=== PATIENT | male | born 1935 | race Caucasian/White ===

== ENCOUNTER 2017-04-04 11:57 | Emergency (ER) | payer OTHER ==
[~2017-04-04 11:57] MED LIST: HYDR25TA PO; IBUP-2354 PO; MELA5CAP PO; MULT-1299 PO; VIT1CAPS47 PO
[2017-04-04 13:03] LABS: BASOPHILS % (AUTO) 0.5 % (0.0-5.0); EOSINOPHILS % (AUTO) 0.7 % (0.0-8.0); HEMATOCRIT 42.5 % (42-54); LYMPHOCYTES % (AUTO) 10.1 % (21.0-51.0); MEAN CORPUSCULAR VOLUME 91.1 fL (79-99); MONOCYTES % (AUTO) 9.4 % (3.0-13.0); NEUTROPHILS % (AUTO) 79.3 % (40.0-77.0); PLATELET COUNT (AUTO) 221 K/uL (130-400); RED BLOOD CELL COUNT(AUTO) 4.67 MIL/uL (4.50-6.20); RED CELL DISTRIBUTION WIDTH 14.2 % (11.0-15.5); WHITE BLOOD COUNT (AUTO) 7.5 K/uL (4.8-10.8)
[2017-04-04 13:08] LABS: CARBON DIOXIDE 28 mmol/L (21-32); CHLORIDE 94 mmol/L (101-111); CREATININE 0.8 mg/dL (0.5-1.5); GLOMERULAR FILTR. RATE CALC 99 mL/min (>60); GLUCOSE,RANDOM 90 mg/dL (70-105); POTASSIUM 3.9 mmol/L (3.5-5.1); SODIUM SERUM 133 mmol/L (136-145); UREA NITROGEN, BLOOD 15 mg/dL (7-18)
[2017-04-04 13:09] LABS: INR 1.03 (0.85-1.15); PARTIAL THROMBOPLASTIN TIME 25.3 SEC (26.3-35.5); PROTHROMBIN TIME 10.8 SEC (9.6-11.6)
[2017-04-04 13:21] LABS: ALANINE AMINOTRANSFERASE 26 U/L (12-78); ALBUMIN 4.2 g/dL (3.5-5.0); ALCOHOL, BLOOD < 3 mg/dL (0-10); AMMONIA 19 umol/L (11-32); ASPARTATE AMINOTRANSFERASE 34 U/L (10-37); BILIRUBIN,TOTAL 0.9 mg/dL (0.2-1.0); CREATINE KINASE MB 0.9 ng/mL (0.5-3.6); CREATINE KINASE, TOTAL 221 U/L (21-232); TOTAL PROTEIN, SERUM 7.7 g/dL (6.0-8.3)
[2017-04-04 13:24] LABS: ACETAMINOPHEN < 1 mcg/mL (10-29); SALICYLATE < 2.8 mg/dL (2.8-20.0)
[2017-04-04 13:35] LABS: APPEARANCE,URINE Clear (CLEAR); BILIRUBIN,URINE Negative (NEGATIVE); COLOR,URINE Yellow (YELLOW); GLUCOSE, URINE (UA) Negative (NEGATIVE); KETONES,URINE Negative (NEGATIVE); LEUKOCYTE ESTERASE ,URINE Negative (NEGATIVE); NITRATE,URINE Negative (NEGATIVE); OCCULT BLOOD,URINE Negative (NEGATIVE); PROTEIN,URINE Negative (NEGATIVE)
[2017-04-04 13:41] LABS: AMPHET/METH SCREEN,URINE NEGATIVE (NEGATIVE); BARBITURATE SCREEN, URINE NEGATIVE (NEGATIVE); BENZODIAZEPINES SCREEN,URINE NEGATIVE (NEGATIVE); CANNABINOID SCREEN,URINE NEGATIVE (NEGATIVE); COCAINE SCREEN,URINE NEGATIVE (NEGATIVE); OPIATE SCREEN,URINE NEGATIVE (NEGATIVE); PHENCYCLIDINE SCREEN,URINE NEGATIVE (NEGATIVE)
== END 2017-04-04 15:20 | disposition home or self-care (01) ==
LOC: EDH 11:57
DX: R41.82 Altered mental status, unspecified (principal); E32.9 Disease of thymus, unspecified; M19.90 Unspecified osteoarthritis, unspecified site; I10 Essential (primary) hypertension; R79.1 Abnormal coagulation profile; Z98.890 Other specified postprocedural states
CPT/HCPCS: 36415; 70450; 80053; 80305; 81003; 82140; 82550; 82553; 85025; 85610; 85730; 93005; 99285; G0480 ×2; G0481

== ENCOUNTER 2020-04-14 12:34 | Inpatient (IN) | payer OTHER ==
[~2020-04-14] VITALS: Ht 170.2 cm; Wt 61.8 kg
[~2020-04-14 12:34] MED LIST changes: -IBUP-2354 PO; +IBUP-2733 PO
[2020-04-14 13:08] LABS: BASOPHILS % (AUTO) 0.5 % (0.0-5.0); EOSINOPHILS % (AUTO) 3.9 % (0.0-8.0); HEMATOCRIT 39.3 % (42-54); LYMPHOCYTES % (AUTO) 16.1 % (21.0-51.0); MEAN CORPUSCULAR HEMOGLOBIN 31.8 pg (27.0-33.0); MEAN CORPUSCULAR HGB CONC 34.4 g/dL (32.0-36.0); MEAN CORPUSCULAR VOLUME 92.7 fL (79-99); MONOCYTES % (AUTO) 8.7 % (3.0-13.0); NEUTROPHILS % (AUTO) 70.1 % (40.0-77.0); PLATELET COUNT (AUTO) 222 K/uL (130-400); RED BLOOD CELL COUNT(AUTO) 4.24 MIL/uL (4.50-6.20); RED CELL DISTRIBUTION WIDTH 13.3 % (11.0-15.5); WHITE BLOOD COUNT (AUTO) 7.6 K/uL (4.8-10.8)
[2020-04-14 13:24] LABS: APPEARANCE,URINE Clear (CLEAR); BILIRUBIN,URINE Negative (NEGATIVE); COLOR,URINE Yellow (YELLOW); GLUCOSE, URINE (UA) Negative (NEGATIVE); KETONES,URINE Negative (NEGATIVE); LEUKOCYTE ESTERASE ,URINE Trace (NEGATIVE); NITRATE,URINE Negative (NEGATIVE); OCCULT BLOOD,URINE Negative (NEGATIVE); PROTEIN,URINE Negative (NEGATIVE)
[2020-04-14 13:32] LABS: ALBUMIN 4.5 g/dL (3.5-5.0); BILIRUBIN,TOTAL 0.9 mg/dL (0.2-1.0); TOTAL PROTEIN, SERUM 7.8 g/dL (6.0-8.3)
[2020-04-14 13:49] LABS: BACTERIA,URINE Rare /HPF (None Seen); RBC,URINE 0-1 /HPF (0-1); SQUAMOUS EPITHELIAL CELL,UR Rare /HPF (0-2); WBC,URINE 0-1 /HPF (0-1)
[2020-04-14] MEDS ORDERED: 0.9%NACL 1000ML 1,000 ML IV ONE ×2 (14:31→21:15)
[2020-04-14] MEDS: POLYETHYLENE GLYCOL 3350 17 GM POWD.PACK PO SCH ×2 (18:00→21:14)
[2020-04-14 18:45] VITALS: BP 172/82
[2020-04-14 20:00] VITALS: BP 120/62
[2020-04-14] MEDS ORDERED: FLUO60TA PO (20:44)
[2020-04-14] MEDS ORDERED: SIMV5TAB58 PO (20:44)
[2020-04-14] MEDS ORDERED: PANT40TA55 PO (20:44)
[2020-04-14] MEDS ORDERED: NAPR-1023 PO (20:44)
[2020-04-14] MEDS ORDERED: DOCU100C33 PO (20:44)
[2020-04-14] MEDS ORDERED: [UNRECOGNIZED DRUG - CODE] MC (20:44)
[2020-04-14] MEDS ORDERED: MULT-1258 PO (20:44)
[2020-04-14] MEDS ORDERED: CARB-38 PO (20:44)
[2020-04-14] MEDS: LEVODOPA PO SCH (21:16)
[2020-04-14] MEDS: [UNRECOGNIZED DRUG - OTHER] PO SCH (21:16)
[2020-04-14] MEDS: CARBIDOPA PO SCH (21:16)
[2020-04-14] MEDS: FLUOXETINE HCL 20 MG CAPSULE PO SCH (21:24)
[2020-04-14] MEDS: SIMVASTATIN 10 MG TABLET PO SCH (21:25)
[2020-04-14 23:43] VITALS: BP 148/75
[2020-04-15] MEDS: CARBIDOPA PO SCH ×4 (02:55→20:47)
[2020-04-15] MEDS: [UNRECOGNIZED DRUG - OTHER] PO SCH ×4 (02:55→20:47)
[2020-04-15] MEDS: LEVODOPA PO SCH ×4 (02:55→20:47)
[2020-04-15] MEDS ORDERED: GLUCAGON 1MG KIT 1 MG ML IM PRN (03:45)
[2020-04-15] MEDS ORDERED: DEXTROSE 50%-WATER 50 ML DISP.SYRIN IV PRN (03:45)
[2020-04-15 04:00] VITALS: BP 107/52
[2020-04-15 07:30] VITALS: BP 150/77
[2020-04-15 11:00] VITALS: BP 111/66
[2020-04-15] MEDS: PANTOPRAZOLE 40 MG TAB DR PO SCH (11:01)
[2020-04-15] MEDS: DOCUSATE SODIUM 100 MG CAP PO SCH (11:01)
[2020-04-15] MEDS: MEGESTROL 400 MG/10 ML UDCUP PO SCH (11:01)
[2020-04-15] MEDS: POLYETHYLENE GLYCOL 3350 17 GM POWD.PACK PO SCH (11:02)
[2020-04-15 16:00] VITALS: BP 149/72
[2020-04-15 20:14] VITALS: BP 136/65
[2020-04-15] MEDS: SIMVASTATIN 10 MG TABLET PO SCH (20:47)
[2020-04-15] MEDS: FLUOXETINE HCL 20 MG CAPSULE PO SCH (20:47)
[2020-04-15 23:56] VITALS: BP 146/71
[2020-04-16] VITALS: BP 146/71
[2020-04-16] MEDS: [UNRECOGNIZED DRUG - OTHER] PO SCH ×3 (03:00→20:12)
[2020-04-16] MEDS: CARBIDOPA PO SCH ×3 (03:00→20:12)
[2020-04-16] MEDS: LEVODOPA PO SCH ×3 (03:00→20:12)
[2020-04-16 04:00] VITALS: BP 118/64
[2020-04-16 06:02] LABS: HEMATOCRIT 36.4 % (42-54); MEAN CORPUSCULAR HEMOGLOBIN 31.3 pg (27.0-33.0); MEAN CORPUSCULAR HGB CONC 34.3 g/dL (32.0-36.0); MEAN CORPUSCULAR VOLUME 91.2 fL (79-99); RED BLOOD CELL COUNT(AUTO) 3.99 MIL/uL (4.50-6.20); WHITE BLOOD COUNT (AUTO) 6.9 K/uL (4.8-10.8)
[2020-04-16 06:27] LABS: ALBUMIN 3.4 g/dL (3.5-5.0); BILIRUBIN,TOTAL 0.8 mg/dL (0.2-1.0); CREATININE 0.9 mg/dL (0.5-1.5); TOTAL PROTEIN, SERUM 6.5 g/dL (6.0-8.3)
[2020-04-16 07:30] VITALS: BP 146/58
[2020-04-16] MEDS: MEGESTROL 400 MG/10 ML UDCUP PO SCH (09:00)
[2020-04-16] MEDS: PANTOPRAZOLE 40 MG TAB DR PO SCH (11:21)
[2020-04-16] MEDS: POLYETHYLENE GLYCOL 3350 17 GM POWD.PACK PO SCH (11:21)
[2020-04-16] MEDS: DOCUSATE SODIUM 100 MG CAP PO SCH (11:21)
[2020-04-16 11:30] VITALS: BP 156/76
[2020-04-16 16:00] VITALS: BP 144/77
[2020-04-16 20:00] VITALS: BP 133/61
[2020-04-16] MEDS: SIMVASTATIN 10 MG TABLET PO SCH (20:12)
[2020-04-16] MEDS: FLUOXETINE HCL 20 MG CAPSULE PO SCH (20:12)
[2020-04-17] VITALS: BP 144/75
[2020-04-17] MEDS: CARBIDOPA PO SCH ×4 (03:00→20:22)
[2020-04-17] MEDS: [UNRECOGNIZED DRUG - OTHER] PO SCH ×4 (03:00→20:22)
[2020-04-17] MEDS: LEVODOPA PO SCH ×4 (03:00→20:22)
[2020-04-17 03:53] VITALS: BP 99/78
[2020-04-17 05:30] LABS: HEMATOCRIT 37.6 % (42-54); MEAN CORPUSCULAR HEMOGLOBIN 30.6 pg (27.0-33.0); MEAN CORPUSCULAR HGB CONC 33.8 g/dL (32.0-36.0); MEAN CORPUSCULAR VOLUME 90.6 fL (79-99); RED BLOOD CELL COUNT(AUTO) 4.15 MIL/uL (4.50-6.20)
[2020-04-17 06:16] LABS: ALBUMIN 3.6 g/dL (3.5-5.0); BILIRUBIN,TOTAL 0.8 mg/dL (0.2-1.0); CREATININE 0.9 mg/dL (0.5-1.5); POTASSIUM 3.8 mmol/L (3.5-5.1); TOTAL PROTEIN, SERUM 6.7 g/dL (6.0-8.3)
[2020-04-17 08:00] VITALS: BP 151/76
[2020-04-17] MEDS: DOCUSATE SODIUM 100 MG CAP PO SCH (08:11)
[2020-04-17] MEDS: PANTOPRAZOLE 40 MG TAB DR PO SCH (08:11)
[2020-04-17] MEDS: MEGESTROL 400 MG/10 ML UDCUP PO SCH (08:11)
[2020-04-17] MEDS: POLYETHYLENE GLYCOL 3350 17 GM POWD.PACK PO SCH (08:11)
[2020-04-17 12:00] VITALS: BP 111/66
[2020-04-17 16:00] VITALS: BP 96/57
[2020-04-17 20:00] VITALS: BP 127/66
[2020-04-17] MEDS: SIMVASTATIN 10 MG TABLET PO SCH (20:22)
[2020-04-17] MEDS: FLUOXETINE HCL 20 MG CAPSULE PO SCH (20:22)
[2020-04-18] VITALS: BP 116/67
[2020-04-18] MEDS: CARBIDOPA PO SCH ×4 (03:00→21:51)
[2020-04-18] MEDS: [UNRECOGNIZED DRUG - OTHER] PO SCH ×4 (03:00→21:51)
[2020-04-18] MEDS: LEVODOPA PO SCH ×4 (03:00→21:51)
[2020-04-18 04:28] VITALS: BP 147/87
[2020-04-18 08:00] VITALS: BP 125/64
[2020-04-18] MEDS: MEGESTROL 400 MG/10 ML UDCUP PO SCH (08:54)
[2020-04-18] MEDS: DOCUSATE SODIUM 100 MG CAP PO SCH (08:54)
[2020-04-18] MEDS: PANTOPRAZOLE 40 MG TAB DR PO SCH (08:54)
[2020-04-18] MEDS: POLYETHYLENE GLYCOL 3350 17 GM POWD.PACK PO SCH (08:55)
[2020-04-18 12:00] VITALS: BP 105/69
[2020-04-18 16:00] VITALS: BP 118/71
[2020-04-18 20:35] VITALS: BP 102/59
[2020-04-18] MEDS: SIMVASTATIN 10 MG TABLET PO SCH (21:48)
[2020-04-18] MEDS: FLUOXETINE HCL 20 MG CAPSULE PO SCH (21:48)
[2020-04-19] VITALS (7 sets, daily range): BP systolic 104–138; BP diastolic 54–76
[2020-04-19] MEDS: CARBIDOPA PO SCH ×4 (02:12→20:04)
[2020-04-19] MEDS: LEVODOPA PO SCH ×4 (02:12→20:04)
[2020-04-19] MEDS: [UNRECOGNIZED DRUG - OTHER] PO SCH ×4 (02:12→20:04)
[2020-04-19 06:23] LABS: HEMATOCRIT 35.7 % (42-54); MEAN CORPUSCULAR HEMOGLOBIN 30.9 pg (27.0-33.0); MEAN CORPUSCULAR HGB CONC 33.9 g/dL (32.0-36.0); MEAN CORPUSCULAR VOLUME 91.3 fL (79-99); RED BLOOD CELL COUNT(AUTO) 3.91 MIL/uL (4.50-6.20); RED CELL DISTRIBUTION WIDTH 13.2 % (11.0-15.5); WHITE BLOOD COUNT (AUTO) 7.7 K/uL (4.8-10.8)
[2020-04-19 06:40] LABS: ALBUMIN 3.3 g/dL (3.5-5.0); BILIRUBIN,TOTAL 0.8 mg/dL (0.2-1.0); TOTAL PROTEIN, SERUM 6.4 g/dL (6.0-8.3)
[2020-04-19] MEDS: DOCUSATE SODIUM 100 MG CAP PO SCH (08:07)
[2020-04-19] MEDS: POLYETHYLENE GLYCOL 3350 17 GM POWD.PACK PO SCH (08:07)
[2020-04-19] MEDS: MEGESTROL 400 MG/10 ML UDCUP PO SCH (08:07)
[2020-04-19] MEDS: PANTOPRAZOLE 40 MG TAB DR PO SCH (08:07)
[2020-04-19] MEDS: FLUOXETINE HCL 20 MG CAPSULE PO SCH (20:03)
[2020-04-19] MEDS: SIMVASTATIN 10 MG TABLET PO SCH (20:04)
[2020-04-20] MEDS: [UNRECOGNIZED DRUG - OTHER] PO SCH ×4 (03:11→21:30)
[2020-04-20] MEDS: LEVODOPA PO SCH ×4 (03:11→21:30)
[2020-04-20] MEDS: CARBIDOPA PO SCH ×4 (03:11→21:30)
[2020-04-20 04:08] VITALS: BP 134/73
[2020-04-20 06:26] LABS: HEMATOCRIT 33.1 % (42-54); MEAN CORPUSCULAR HEMOGLOBIN 31.2 pg (27.0-33.0); MEAN CORPUSCULAR HGB CONC 33.8 g/dL (32.0-36.0); MEAN CORPUSCULAR VOLUME 92.2 fL (79-99); RED BLOOD CELL COUNT(AUTO) 3.59 MIL/uL (4.50-6.20); RED CELL DISTRIBUTION WIDTH 13.2 % (11.0-15.5); WHITE BLOOD COUNT (AUTO) 7.8 K/uL (4.8-10.8)
[2020-04-20 07:06] LABS: ALBUMIN 3.1 g/dL (3.5-5.0); BILIRUBIN,TOTAL 0.6 mg/dL (0.2-1.0); POTASSIUM 3.9 mmol/L (3.5-5.1); TOTAL PROTEIN, SERUM 6.4 g/dL (6.0-8.3)
[2020-04-20 07:30] VITALS: BP 119/63
[2020-04-20] MEDS: PANTOPRAZOLE 40 MG TAB DR PO SCH (10:27)
[2020-04-20] MEDS: MEGESTROL 400 MG/10 ML UDCUP PO SCH (10:27)
[2020-04-20] MEDS: DOCUSATE SODIUM 100 MG CAP PO SCH (10:27)
[2020-04-20] MEDS: POLYETHYLENE GLYCOL 3350 17 GM POWD.PACK PO SCH (10:27)
[2020-04-20 11:12] VITALS: BP 132/74
[2020-04-20 15:55] VITALS: BP 135/72
[2020-04-20 20:15] VITALS: BP 119/62
[2020-04-20] MEDS: SIMVASTATIN 10 MG TABLET PO SCH (21:29)
[2020-04-20] MEDS: FLUOXETINE HCL 20 MG CAPSULE PO SCH (21:29)
[2020-04-20 23:20] VITALS: BP 122/58
[2020-04-21] MEDS: LEVODOPA PO SCH ×4 (03:38→20:42)
[2020-04-21] MEDS: [UNRECOGNIZED DRUG - OTHER] PO SCH ×4 (03:38→20:42)
[2020-04-21] MEDS: CARBIDOPA PO SCH ×4 (03:38→20:42)
[2020-04-21 03:52] VITALS: BP 135/76
[2020-04-21 07:48] VITALS: BP 109/54
[2020-04-21] MEDS: PANTOPRAZOLE 40 MG TAB DR PO SCH (10:05)
[2020-04-21] MEDS: POLYETHYLENE GLYCOL 3350 17 GM POWD.PACK PO SCH (10:05)
[2020-04-21] MEDS: DOCUSATE SODIUM 100 MG CAP PO SCH (10:05)
[2020-04-21] MEDS: MEGESTROL 400 MG/10 ML UDCUP PO SCH (10:06)
[2020-04-21 12:19] VITALS: BP 112/61
[2020-04-21 16:02] VITALS: BP 130/60
[2020-04-21 20:33] VITALS: BP 103/52
[2020-04-21] MEDS: FLUOXETINE HCL 20 MG CAPSULE PO SCH (20:40)
[2020-04-21] MEDS: SIMVASTATIN 10 MG TABLET PO SCH (20:40)
[2020-04-21 23:35] VITALS: BP 102/52
[2020-04-22] MEDS: [UNRECOGNIZED DRUG - OTHER] PO SCH ×4 (03:36→20:20)
[2020-04-22] MEDS: CARBIDOPA PO SCH ×4 (03:36→20:20)
[2020-04-22] MEDS: LEVODOPA PO SCH ×4 (03:36→20:20)
[2020-04-22 04:05] VITALS: BP 127/68
[2020-04-22 06:17] LABS: HEMATOCRIT 33.7 % (42-54); MEAN CORPUSCULAR HEMOGLOBIN 31.1 pg (27.0-33.0); MEAN CORPUSCULAR HGB CONC 33.8 g/dL (32.0-36.0); MEAN CORPUSCULAR VOLUME 91.8 fL (79-99); RED BLOOD CELL COUNT(AUTO) 3.67 MIL/uL (4.50-6.20); RED CELL DISTRIBUTION WIDTH 13.1 % (11.0-15.5); WHITE BLOOD COUNT (AUTO) 7.1 K/uL (4.8-10.8)
[2020-04-22 06:29] LABS: ALBUMIN 3.1 g/dL (3.5-5.0); BILIRUBIN,TOTAL 0.5 mg/dL (0.2-1.0); POTASSIUM 3.9 mmol/L (3.5-5.1); TOTAL PROTEIN, SERUM 6.4 g/dL (6.0-8.3)
[2020-04-22 09:24] VITALS: BP 153/70
[2020-04-22] MEDS: POLYETHYLENE GLYCOL 3350 17 GM POWD.PACK PO SCH (13:19)
[2020-04-22] MEDS: MEGESTROL 400 MG/10 ML UDCUP PO SCH (13:19)
[2020-04-22] MEDS: PANTOPRAZOLE 40 MG TAB DR PO SCH (13:20)
[2020-04-22] MEDS: DOCUSATE SODIUM 100 MG CAP PO SCH (13:20)
[2020-04-22 14:29] VITALS: BP 142/75
[2020-04-22 16:35] VITALS: BP 128/59
[2020-04-22] MEDS: SIMVASTATIN 10 MG TABLET PO SCH (20:19)
[2020-04-22] MEDS: FLUOXETINE HCL 20 MG CAPSULE PO SCH (20:19)
[2020-04-22 20:24] VITALS: BP 117/73
[2020-04-23 00:20] VITALS: BP 129/67
[2020-04-23] MEDS: [UNRECOGNIZED DRUG - OTHER] PO SCH ×4 (02:41→20:59)
[2020-04-23] MEDS: CARBIDOPA PO SCH ×4 (02:41→20:59)
[2020-04-23] MEDS: LEVODOPA PO SCH ×4 (02:41→20:59)
[2020-04-23 04:20] VITALS: BP 137/73
[2020-04-23 04:48] LABS: HEMATOCRIT 36.7 % (42-54); MEAN CORPUSCULAR HEMOGLOBIN 30.9 pg (27.0-33.0); MEAN CORPUSCULAR HGB CONC 34.1 g/dL (32.0-36.0); MEAN CORPUSCULAR VOLUME 90.6 fL (79-99); PLATELET COUNT (AUTO) 236 K/uL (130-400); RED BLOOD CELL COUNT(AUTO) 4.05 MIL/uL (4.50-6.20); RED CELL DISTRIBUTION WIDTH 12.9 % (11.0-15.5); WHITE BLOOD COUNT (AUTO) 6.8 K/uL (4.8-10.8)
[2020-04-23 05:08] LABS: ALBUMIN 3.4 g/dL (3.5-5.0); BILIRUBIN,TOTAL 0.7 mg/dL (0.2-1.0); POTASSIUM 4.2 mmol/L (3.5-5.1); TOTAL PROTEIN, SERUM 6.8 g/dL (6.0-8.3)
[2020-04-23 06:44] LABS: BAND NEUTROPHILS % (MANUAL) 2 % (0-2); LYMPHOCYTES % (MANUAL) 27 % (22-44); MONOCYTES % (MANUAL) 8 % (2-9); SEGMENTED NEUTROPHILS % 63 % (40-70)
[2020-04-23 06:45] LABS: MAN.DIFF COMMENT-IMPRESSION MANUAL DIFFERENTIAL
[2020-04-23 06:47] LABS: PLATELET MORPHOLOGY COMMENT ADEQUATE
[2020-04-23] MEDS: DOCUSATE SODIUM 100 MG CAP PO SCH (09:47)
[2020-04-23] MEDS: PANTOPRAZOLE 40 MG TAB DR PO SCH (09:47)
[2020-04-23] MEDS: MEGESTROL 400 MG/10 ML UDCUP PO SCH (09:47)
[2020-04-23] MEDS: POLYETHYLENE GLYCOL 3350 17 GM POWD.PACK PO SCH (09:47)
[2020-04-23 09:48] VITALS: BP 130/58
[2020-04-23 13:53] VITALS: BP 114/57
[2020-04-23 19:21] VITALS: BP 108/74
[2020-04-23 20:17] VITALS: BP 114/61
[2020-04-23] MEDS: SIMVASTATIN 10 MG TABLET PO SCH (20:58)
[2020-04-23] MEDS: FLUOXETINE HCL 20 MG CAPSULE PO SCH (20:58)
[2020-04-24 00:46] VITALS: BP 122/56
[2020-04-24] MEDS: CARBIDOPA PO SCH ×4 (02:45→21:02)
[2020-04-24] MEDS: LEVODOPA PO SCH ×4 (02:45→21:02)
[2020-04-24] MEDS: [UNRECOGNIZED DRUG - OTHER] PO SCH ×4 (02:45→21:02)
[2020-04-24 05:59] VITALS: BP 114/62
[2020-04-24] MEDS: PANTOPRAZOLE 40 MG TAB DR PO SCH (09:18)
[2020-04-24] MEDS: POLYETHYLENE GLYCOL 3350 17 GM POWD.PACK PO SCH (09:18)
[2020-04-24] MEDS: DOCUSATE SODIUM 100 MG CAP PO SCH (09:18)
[2020-04-24] MEDS: MEGESTROL 400 MG/10 ML UDCUP PO SCH (09:19)
[2020-04-24 09:59] VITALS: BP 116/69
[2020-04-24 13:41] VITALS: BP 116/65
[2020-04-24 17:39] VITALS: BP 117/64
[2020-04-24] MEDS ORDERED: DiphenhydrAMINE HCL 50 MG/ML VIAL ONE (18:09)
[2020-04-24] MEDS ORDERED: DiphenhydrAMINE HCL 50 MG/ML VIAL IV SCH ×2 (18:15→18:30)
[2020-04-24 20:00] VITALS: BP 122/61
[2020-04-24] MEDS: FLUOXETINE HCL 20 MG CAPSULE PO SCH (21:02)
[2020-04-24] MEDS: SIMVASTATIN 10 MG TABLET PO SCH (21:02)
[2020-04-25] VITALS: BP 105/61
[2020-04-25] MEDS: [UNRECOGNIZED DRUG - OTHER] PO SCH ×4 (03:08→20:30)
[2020-04-25] MEDS: CARBIDOPA PO SCH ×4 (03:08→20:30)
[2020-04-25] MEDS: LEVODOPA PO SCH ×4 (03:08→20:30)
[2020-04-25 04:00] VITALS: BP 111/69
[2020-04-25 06:17] LABS: BASOPHILS % (AUTO) 0.4 % (0.0-5.0); EOSINOPHILS % (AUTO) 4.4 % (0.0-8.0); HEMATOCRIT 33.6 % (42-54); LYMPHOCYTES % (AUTO) 25.4 % (21.0-51.0); MEAN CORPUSCULAR HGB CONC 33.9 g/dL (32.0-36.0); MEAN CORPUSCULAR VOLUME 91.3 fL (79-99); NEUTROPHILS % (AUTO) 59.6 % (40.0-77.0); PLATELET COUNT (AUTO) 263 K/uL (130-400); RED BLOOD CELL COUNT(AUTO) 3.68 MIL/uL (4.50-6.20); WHITE BLOOD COUNT (AUTO) 7.8 K/uL (4.8-10.8)
[2020-04-25 06:43] LABS: ALBUMIN 3.2 g/dL (3.5-5.0); BILIRUBIN,TOTAL 0.5 mg/dL (0.2-1.0); TOTAL PROTEIN, SERUM 6.4 g/dL (6.0-8.3)
[2020-04-25 08:00] VITALS: BP 123/73
[2020-04-25] MEDS: POLYETHYLENE GLYCOL 3350 17 GM POWD.PACK PO SCH (09:00)
[2020-04-25] MEDS: PANTOPRAZOLE 40 MG TAB DR PO SCH (09:03)
[2020-04-25] MEDS: DOCUSATE SODIUM 100 MG CAP PO SCH (09:03)
[2020-04-25] MEDS: MEGESTROL 400 MG/10 ML UDCUP PO SCH (09:04)
[2020-04-25 12:00] VITALS: BP 130/73
[2020-04-25 16:00] VITALS: BP 122/57
[2020-04-25 20:00] VITALS: BP 125/72
[2020-04-25] MEDS: FLUOXETINE HCL 20 MG CAPSULE PO SCH (20:29)
[2020-04-25] MEDS: SIMVASTATIN 10 MG TABLET PO SCH (20:29)
[2020-04-26] VITALS (7 sets, daily range): BP systolic 104–138; BP diastolic 54–73
[2020-04-26] MEDS: [UNRECOGNIZED DRUG - OTHER] PO SCH ×4 (03:06→21:35)
[2020-04-26] MEDS: LEVODOPA PO SCH ×4 (03:06→21:35)
[2020-04-26] MEDS: CARBIDOPA PO SCH ×4 (03:06→21:35)
[2020-04-26] MEDS: PANTOPRAZOLE 40 MG TAB DR PO SCH (08:48)
[2020-04-26] MEDS: MEGESTROL 400 MG/10 ML UDCUP PO SCH (08:48)
[2020-04-26] MEDS: DOCUSATE SODIUM 100 MG CAP PO SCH (08:48)
[2020-04-26] MEDS: POLYETHYLENE GLYCOL 3350 17 GM POWD.PACK PO SCH (08:48)
[2020-04-26] MEDS ORDERED: DIPHENHYDRAMINE HCL 25 MG CAPSULE PO PRN (20:30)
[2020-04-26] MEDS: SIMVASTATIN 10 MG TABLET PO SCH (21:35)
[2020-04-26] MEDS: FLUOXETINE HCL 20 MG CAPSULE PO SCH (21:35)
[2020-04-27] MEDS: CARBIDOPA PO SCH ×4 (02:21→20:20)
[2020-04-27] MEDS: LEVODOPA PO SCH ×4 (02:21→20:20)
[2020-04-27] MEDS: [UNRECOGNIZED DRUG - OTHER] PO SCH ×4 (02:21→20:20)
[2020-04-27 04:08] VITALS: BP 108/53
[2020-04-27 04:53] LABS: HEMATOCRIT 34.7 % (42-54); MEAN CORPUSCULAR HEMOGLOBIN 31.3 pg (27.0-33.0); MEAN CORPUSCULAR HGB CONC 34.3 g/dL (32.0-36.0); MEAN CORPUSCULAR VOLUME 91.3 fL (79-99); RED BLOOD CELL COUNT(AUTO) 3.8 MIL/uL (4.50-6.20); RED CELL DISTRIBUTION WIDTH 13.1 % (11.0-15.5); WHITE BLOOD COUNT (AUTO) 7.8 K/uL (4.8-10.8)
[2020-04-27 05:15] LABS: ALBUMIN 3.3 g/dL (3.5-5.0); BILIRUBIN,TOTAL 0.5 mg/dL (0.2-1.0); POTASSIUM 4.1 mmol/L (3.5-5.1); TOTAL PROTEIN, SERUM 6.5 g/dL (6.0-8.3)
[2020-04-27 08:00] VITALS: BP 111/60
[2020-04-27] MEDS: MEGESTROL 400 MG/10 ML UDCUP PO SCH (09:49)
[2020-04-27] MEDS: POLYETHYLENE GLYCOL 3350 17 GM POWD.PACK PO SCH (09:50)
[2020-04-27] MEDS: PANTOPRAZOLE 40 MG TAB DR PO SCH (09:50)
[2020-04-27] MEDS: DOCUSATE SODIUM 100 MG CAP PO SCH (09:50)
[2020-04-27 11:00] VITALS: BP 94/53
[2020-04-27 14:55] VITALS: BP 104/73
[2020-04-27 14:56] VITALS: BP 125/77
[2020-04-27] MEDS: FLUOXETINE HCL 20 MG CAPSULE PO SCH (20:20)
[2020-04-27] MEDS: SIMVASTATIN 10 MG TABLET PO SCH (20:20)
[2020-04-27 20:37] VITALS: BP 122/75
[2020-04-28 00:24] VITALS: BP 142/68
[2020-04-28] MEDS: CARBIDOPA PO SCH ×4 (02:05→15:07)
[2020-04-28] MEDS: [UNRECOGNIZED DRUG - OTHER] PO SCH ×4 (02:05→15:07)
[2020-04-28] MEDS: LEVODOPA PO SCH ×4 (02:05→15:07)
[2020-04-28 04:26] VITALS: BP 108/60
[2020-04-28 04:40] LABS: HEMATOCRIT 34.4 % (42-54); MEAN CORPUSCULAR HEMOGLOBIN 30.5 pg (27.0-33.0); MEAN CORPUSCULAR HGB CONC 33.7 g/dL (32.0-36.0); MEAN CORPUSCULAR VOLUME 90.5 fL (79-99); RED BLOOD CELL COUNT(AUTO) 3.8 MIL/uL (4.50-6.20); RED CELL DISTRIBUTION WIDTH 13.1 % (11.0-15.5); WHITE BLOOD COUNT (AUTO) 8.2 K/uL (4.8-10.8)
[2020-04-28 05:09] LABS: ALBUMIN 3.2 g/dL (3.5-5.0); BILIRUBIN,TOTAL 0.6 mg/dL (0.2-1.0); CREATININE 1.1 mg/dL (0.5-1.5); POTASSIUM 4.1 mmol/L (3.5-5.1); TOTAL PROTEIN, SERUM 6.3 g/dL (6.0-8.3)
[2020-04-28 08:00] VITALS: BP 116/68
[2020-04-28] MEDS: MEGESTROL 400 MG/10 ML UDCUP PO SCH (08:54)
[2020-04-28] MEDS: PANTOPRAZOLE 40 MG TAB DR PO SCH (08:54)
[2020-04-28] MEDS: POLYETHYLENE GLYCOL 3350 17 GM POWD.PACK PO SCH (08:54)
[2020-04-28] MEDS: DOCUSATE SODIUM 100 MG CAP PO SCH (08:54)
[2020-04-28 11:35] VITALS: BP 125/69
[2020-04-28] MEDS ORDERED: MEMANTINE HCL 5 MG TABLET PO SCH (13:45)
[2020-04-28] MEDS ORDERED: MEMA5TAB PO (15:39)
[2020-04-28 16:00] VITALS: BP 122/71
[2020-04-29] MEDS ORDERED: MEMANTINE HCL 5 MG TABLET PO SCH (09:00)
== END 2020-04-28 17:10 | DRG 641 ==
LOC: EDH 12:34 → OBSVTOIN 16:00 → EDHIP 16:00 → 3DH 18:27
PROVIDERS: ADMIT Internal Medicine; ATTEND Internal Medicine
DX: E86.0 Dehydration (principal); G20 Parkinson's disease; F02.80 Dementia in other diseases classified elsewhere, unspecified severity, without behavioral disturbance, psychotic disturbance, mood disturbance, and anxiety; E86.1 Hypovolemia; E78.5 Hyperlipidemia, unspecified; K21.9 Gastro-esophageal reflux disease without esophagitis; K59.00 Constipation, unspecified; Z20.822 Contact with and (suspected) exposure to COVID-19; R53.83 Other fatigue; Z81.8 Family history of other mental and behavioral disorders; Z82.5 Family history of asthma and other chronic lower respiratory diseases; Z91.81 History of falling; Z74.01 Bed confinement status; Z87.440 Personal history of urinary (tract) infections
CPT/HCPCS: 36415; 70450; 71045; 74018; 80053; 81001; 82550; 82948; 83605; 84443; 84484; 85025; 85027; 87088; 87426; 93005; 97039; G0378; J1200; J7030; Q0163; U0003